=== PATIENT | female | born 1975 | race Caucasian/White ===

== ENCOUNTER 2023-11-19 16:23 | Outpatient (CLI) | payer OTHER, SELFPAY ==
[2023-11-19 22:29] LABS: Chlamydia DNA Amplified* NOT DETECTED (No Detected); GC DNA Amplified* NOT DETECTED (No Detected)
== END 2023-11-19 16:24 | disposition home or self-care (01) ==
PROVIDERS: PCP Family Medicine; Visit Provider Registered Nurse
DX: Z11.3 Encounter for screening for infections with a predominantly sexual mode of transmission (principal); L65.9 Nonscarring hair loss, unspecified
CPT/HCPCS: 84443; 87491; 87591

== ENCOUNTER 2023-12-10 08:36 | Outpatient (CLI) | payer OTHER, SELFPAY ==
--- NOTE | 2023-12-10 09:47 | W.ANESCHARGE ---
Anesthesia Charges Start Date/Time Anesthesia Start Date: 12/10/23 Anesthesia Start Time: 09:23 Stop Date/Time Anesthesia Stop Date: 12/10/23 Anesthesia Stop Time: 09:44
--- NOTE | 2023-12-10 10:00 | W.ANESCHARGE ---
Anesthesia Charges Start Date/Time Anesthesia Start Date: 12/10/23 Anesthesia Start Time: 09:23 Stop Date/Time Anesthesia Stop Date: 12/10/23 Anesthesia Stop Time: 09:44
== END 2023-12-10 08:37 | disposition home or self-care (01) ==
LOC: OP CLINIC 08:37
PROVIDERS: PCP Family Medicine; Visit Provider Internal Medicine
DX: Z12.11 Encounter for screening for malignant neoplasm of colon (principal)
CPT/HCPCS: 00811; 00812; 45378; J2704

== ENCOUNTER 2024-04-15 14:57 | Outpatient (CLI) | payer OTHER, SELFPAY ==
--- NOTE | 2024-04-15 15:00 | MM_ITS ---
Patient: RAFIA INGRAM Facility:?[facility] Patient ID:?[id number] Site Patient ID:?[id number] Site :?1975 Study:?XRay-Breast Bilateral 3D W/CAD-04/15/2024 3:39:02 PM Ordering Physician:Vazquez Bettencourt Final Report: BILATERAL SCREENING MAMMOGRAM WITH COMPUTER-AIDED DETECTION AND TOMOSYNTHESIS TECHNIQUE: CC and MLO views were obtained. These mammographic images have been obtained using full-field digital technique. These mammographic images were interpreted with the benefit of computer-aided detection. Breast Tomosynthesis was used in this interpretation. COMPARISON FILM: 04/12/23, 03/19/22, 02/28/21. FINDINGS: There are scattered areas of fibroglandular density. IMPRESSION: There is no radiographic evidence for malignancy. ASSESSMENT: BI-RADS Category 2: Benign RECOMMENDATION: Routine screening mammogram in 1 year. A lay language report of this examination will be provided to the patient. Иван Mariee M.D. Diagnostic Radiologist [email or web address] DSM/sp R& Transcribed: 1:57 p.m. SP/Dictated by: Иван Mariee MD @ 04/16/2024 9:55:00 AM Signed by:?Иван Mariee MD @04/16/2024 3:10:48 PM (Electronic Signature)
== END 2024-04-15 14:58 | disposition home or self-care (01) ==
PROVIDERS: PCP Family Medicine; Visit Provider Family Medicine
DX: Z12.31 Encounter for screening mammogram for malignant neoplasm of breast (principal)
CPT/HCPCS: 77063; 77067

== ENCOUNTER 2025-01-12 08:04 | Outpatient (CLI) | payer BC, SELFPAY ==
[2025-01-12 15:25] LABS: Bacterial Vaginosis* POSITIVE (Negative); Candida glab/krus NOT DETECTED (No Detected); Candida species NOT DETECTED (No Detected); Trichomonas vaginalis NOT DETECTED (No Detected)
== END 2025-01-12 08:05 | disposition home or self-care (01) ==
LOC: NFLDREF 08:17
PROVIDERS: PCP Family Medicine; Visit Provider Physician Assistant
DX: N89.8 Other specified noninflammatory disorders of vagina (principal)
CPT/HCPCS: 81513; 87481; 87661

== ENCOUNTER 2025-04-27 13:24 | Emergency (ER) | payer BC, SELFPAY ==
[2025-04-27] VITALS (36 sets, daily range): BP systolic 164–192; BP diastolic 97–124; PULSE 48–62; RESP 9–21; TEMP 36.4; O2SAT 90–100; BMI 36.1
--- OUTSIDE RECORDS SUMMARY | 2025-04-27 13:26 | XMS_ITS | Clinical Summary ---
Author Organization [facility] Address [address] [place] [id number] Care Team Providers Care Excel Vba Developer Name Role Phone Unavailable Primary Care Provider Unavailabl e Allergies No known active allergies Medications TRIAMCINOLONE ACETONIDE 0.1 % LOTION apply a thin film to the affected skin areas by topical route 2 times per day 0 Active FLUTICASONE 50 MCG/ACTUATION NASAL SPRAY, SUSP 2 sprays in each nostril daily 16 1 year 8 Active norgestimate-eth inyl estradiol (TRI-SPRINTEC) 0.18/0.215/0.25 mg-35 mcg (28) tablet Take 1 tablet by mouth once daily. 1 Package PRN 1 Active triamcinolone (ARISTOCORT; KENALOG) 0.1 % creamIndications :Contact dermatitis and other eczema, due to unspecified cause Apply topically to affected area(s) 2 times daily. 45 g 1 1 Active Active Problems Problem Noted Date Diagnosed Date Sensorineural hearing loss, bilateral 11/06/2007 Major depressive disorder, recurrent episode, un specified 08/01/2007 Immunizations Immunization Administration Dates Next Due Td (Age >=7 Years) 05/25/2002 Tuberculin (PPD) 04/10/2010,04/13/2009, 8 Varicella Vaccine 02/20/2007 Family History Medical History Relation Name Comments Alcohol/Drug Father recovering alco holic Alcohol/Drug Paternal Grandfather recover ing alcoholic Diabetes Paternal Grandfather type II Hypertension Paternal Grandfather Cancer Paternal Grandmother lung Relation Name Status Comments Father Paternal Grandfather Paternal Grandmother Social History Tobacco Use Types Packs/Day Years Used Date Smoking Tobacco: Never Smokeless Tobacco: Never Alcohol Use Standard Drinks/Week Comments Yes 0 (1 standard drink = 0.6 oz pur e alcohol) occasional Comments Unknown Sex and Gender Information Value Date Recorded Sex Assigned at Not on file Legal Sex Female 5:41 AM 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 MACHINE OPERATOR Gender Identity Not on file Sexual Orientation Not on file Obstetrics History Last Filed Vital Signs Vital Sign Reading Time Taken Comments Blood Pressure 133/87 02/05/2011 3:38 PM SIDE SEAM MACHINE OPERATOR Pulse 74 02/05/2011 3:38 PM SIDE SEAM MACHINE OPERATOR Temperature 37.1 C (98.8 F) 02/05/2011 3:38 PM SIDE SEAM MACHINE OPERATOR Respiratory Rate - - Oxygen Saturation - - Inhaled Oxygen Concentration - - Weight 83 kg (183 lb) 02/05/2011 3:38 PM SIDE SEAM MACHINE OPERATOR Height - - Body Mass Index - - Plan of Treatment Health Maintenance Due Date Last Done Comments Tdap 1988 Depression screening for age 12+ 1989 HIV for age 15-65 1992 BMI (ht and wt on same day) for age 18+ 1995 Hepatitis C screening for age 18-79 1995 Hepatitis B series for 19+ (1 of 3 - 19+ 3-dose series) 1996 Tetanus booster 05/25/2012 05/25/2002 Colonoscopy through age 75 2022 Lipids for age 45-75 2022 11/05/2006 Mammogram for age 45-75 2022 COVID-19 vaccine series ( - 2023- season) 2024 Influenza Vaccine (Season Ended) 2025 Pap test for age 21-65 11/19/2026 , 11/19/2023, 02/17/2021, Additional history exists Pneumococcal series for age 6-49 Aged Out No longer eligible based on patient's age to complete this topic Procedures Procedure Name Priority Date/Time Associated Diagnosis Comments HPV HIGH RISK Routine 11/19/2023 12:00 PM SIDE SEAM MACHINE OPERATOR LIPID PANEL Timed 11/05/2006 11:16 AM SIDE SEAM MACHINE OPERATOR from Last 3 Months or Most Recently Relevant to Health Maintenance Results * HPV HIGH RISK (11/19/2023 12:00 PM SIDE SEAM MACHINE OPERATOR) TYPE 16 Negative Negative 11/26/2023 2:10 PM SIDE SEAM MACHINE OPERATOR [facility] TYPE 18 Negative Negative 11/26/2023 2:10 PM SIDE SEAM MACHINE OPERATOR [facility] OTHER HIGH RISK TYPES Negative Negative 11/26/2023 2:10 PM SIDE SEAM MACHINE OPERATOR [facility] Other (Cervical) 11/19/2023 12:00 PM SIDE SEAM MACHINE OPERATOR 11/21/2023 4:50 PM SIDE SEAM MACHINE OPERATOR Narrative [facility] - 11/26/2023 2:10 PM SIDE SEAM MACHINE OPERATOR HPV types 16, 18, 31, 33, 35, 39, 45, 51, 52, 56, 58, 59, 66 and 68 DNA were undetectable or below the pre-set threshold. Methodology: Nanette Juan 4800 HPV Test Linette Silva NP MICROBIOLOGY Final Res ult [facility] [address] [address], * LIPID PANEL (11/05/2006 11:16 AM SIDE SEAM MACHINE OPERATOR) CHOLESTEROL,TOTAL 124 110 - 199 mg/dL [facility] TRIGLYCERIDES 113 <150 mg/dL [facility] HDL CHOLESTEROL 58 >40 mg/dL [facility] CHOL/HDL RATIO 2.14 <4.51 [facility] LDL CHOLESTEROL 43 <131 mg/dL [facility] PATIENT STATUS Fasting [facility] 11/05/2006 11:1 6 AM SIDE SEAM MACHINE OPERATOR 11/05/2006 11:16 AM SIDE SEAM MACHINE OPERATOR Teofilo LEPE CHEMISTRY Final Result [facility] [address] [place] [address] from Last 3 Months or Most Recently Relevant to Health Maintenance Insurance [employer] ALEJANDRAELIZABETH AGUILERA [id number]
--- NOTE | 2025-04-27 13:50 | CRLHL7_ITS ---
For Patients: As a result of the Century Cures Act, medical imaging exams and procedure reports are released immediately into your electronic medical record. You may view this report before your referring provider. If you have questions, please contact your health care provider. INDICATION: Chest pain and palpitations COMPARISON: None TECHNIQUE: PA and lateral views of the chest were acquired FINDINGS: TUBES AND LINES: None. HEART AND MEDIASTINUM: Significantly enlarged heart. Tortuous aorta.. LUNGS AND PLEURAL SPACES: The lungs appear normal.The pleural spaces are unremarkable. OSSEOUS STRUCTURES: Age-appropriate appearance. No acute focal finding. IMPRESSION: Significantly enlarged heart. Tortuous thoracic aorta. Lungs and pleural spaces appear normal. Dictated by Alfred Mishra MD @ 04/27/2025 2:12:43 PM (Electronically Signed)
--- NOTE | 2025-04-27 14:01 | ED.GENADULT ---
HPI - General Adult General Date Seen: 04/27/25 Chief complaint: Heartburn/Gastritis Stated complaint: High bp, heartburn Time Seen by Provider: 04/27/25 13:38 Source: patient Mode of arrival: ambulatory Limitations: no limitations History of Present Illness HPI narrative: Patient is a 50-year-old female presenting for chest pain and hypertension. States she initially was having some heartburn sensation in her mid in left upper chest. She was also having some associated nausea. Due to this she decided to check her blood pressure and noticed it was elevated the in the 180 systolic. She states that is very high for her and she has never seen it above 140 before. Of note she has not been taking her hypertension medication now for several months. She states she ran out in for got a follow-up with her doctor to get another prescription. Does state she has some associated tenderness to her left arm but noticed the symptoms started last night and does states she did a lot of climbing up and down ladders and gutter work yesterday. States that was an abnormally large amount of physical exertion that she typically does not do. States she has had heartburn before but this seems different. No associated fevers, chills, shortness of breath, abdominal pain, diarrhea, lightheadedness, dizziness, weakness, numbness. Denies hemoptysis, history of blood clots, lower extremity edema recent surgeries, cancer history. Is not on any hormone therapy. She states symptoms seem to be improving now. Related Data Previous Rx's ?Medication ?Instructions ?Recorded metronidazole 500 mg tablet 500 mg PO BID #14 tabs 01/12/25 chlorthalidone 25 mg tablet 12.5 mg (1/2 x 25 mg) PO DAILY #30 04/27/25 tabs Allergies Allergy/AdvReac Type Severity Reaction Status Date / Time No Known Drug Allergies Allergy Verified 04/27/25 13:31 Review of Systems Status of ROS: Reports: 10 or more systems reviewed and unremarkable except as noted in History and below [facility] Medical History History of depression ?Z86.59 - Personal history of other mental and behavioral disorders (ICD-10) History of vaginal delivery (05/19/13) Irregular menstrual cycle ?N92.6 - Irregular menstruation, unspecified (ICD-10) History of gestational diabetes mellitus (GDM) ?Z86.32 - Personal history of gestational diabetes (ICD-10) Surgical History History of endometrial ablation ?Z98.890 - Other specified postprocedural states (ICD-10) History of right salpingo-oophorectomy (11/21/17) ?Z90.79 - Acquired absence of other genital organ(s) (ICD-10) ?Z90.721 - Acquired absence of ovaries, unilateral (ICD-10) History of laparoscopic cholecystectomy (11/21/17) ?Z90.49 - Acquired absence of other specified parts of digestive tract (ICD-10) History of colonoscopy ?Z98.890 - Other specified postprocedural states (ICD-10) Family History Grandfather Diabetes Heart disease High blood pressure Aunt Thyroid disease Father Heart disease Maternal Grandmother Breast cancer Lung cancer Paternal Grandmother Lung cancer Social History What is your current living situation?: I presently have a place to live Problems where you live: no known problems In the past 12 months, utilities in danger of being shut off: no In past 12 months, lack of transportation kept you from medical appts, meetings, work, or getting things needed for daily living: no How hard is it for you to pay for the very basics like food, housing, medical care, and heating: not very hard In the past 12 mos, have been you worried that your food would run out before you had money to buy more?: never true In the past 12 mos, the food you bought just didn't last and you didn't have money to buy more?: never true How often does anyone, including family, friends and others, physically hurt you: never How often does anyone, including family, friends and others, insult or talk down to you: never How often does anyone, including family, friends and others, threaten you with harm: never How often does anyone, including family, friends and others, scream or curse at you: never Exam Narrative: Exam Narrative: Const: Well-nourished, Well-developed, in mild distress Eyes: PERRL, no conjunctival injection, and symmetrical lids HENT: Atraumatic external nose and ears. Moist mucous membranes. Neck: Symmetric, trachea midline, No thyromegaly. CVS: RRR, No murmurs or gallops. Peripheral pulses 2+ and equal in all extremities RESP: Unlabored respiratory effort. Clear to auscultation bilaterally. GI: Nontender/Nondistended, No rebound or guarding. MSK:Extremities w/o deformity, Normal Active ROM Skin: Warm, Dry. No rashes or lesions. Neuro: Normal Muscle tone, No focal neurological deficits. Psych: Awake, Alert, & Oriented x3. Appropriate mood and affect. Const: Vital Signs, click to edit/add: Vital Signs - 24 hr 04/27/25 13:33 04/27/25 13:45 04/27/25 14:00 Temperature 97.6 F Pulse Rate 56 L 59 L Pulse Rate [Pulse Oximeter] 62 Respiratory Rate 20 16 Blood Pressure Blood Pressure [Ri ght Upper Arm] 186/124 H Pulse Oximetry 98 98 97 [facility] 04/27/25 14:02 04/27/25 14:15 04/27/25 14:17 Temperature Pulse Rate 57 L 58 L 56 L Pulse Rate [Pulse Oximeter] Respiratory Rate 21 17 Blood Pressure 192/110 H 164/117 H Blood Pressure [Ri ght Upper Arm] Pulse Oximetry 97 96 96 Oxygen Delivery Me thod 04/27/25 14:18 04/27/25 14:30 04/27/25 14:31 Temperature Pulse Rate 57 L 56 L 54 L Pulse Rate [Pulse Oximeter] Respiratory Rate 17 11 L 9 L Blood Pressure 174/106 H Blood Pressure [Ri ght Upper Arm] Pulse Oximetry 97 99 100 Oxygen Delivery Me thod 04/27/25 14:45 04/27/25 14:47 04/27/25 15:00 Temperature Pulse Rate 50 L 53 L 58 L Pulse Rate [Pulse Oximeter] Respiratory Rate 16 17 18 Blood Pressure 183/107 H Blood Pressure [Ri ght Upper Arm] Pulse Oximetry 98 100 100 Oxygen Delivery Me thod 04/27/25 15:02 04/27/25 15:10 04/27/25 15:15 Temperature Pulse Rate 52 L 58 L 54 L Pulse Rate [Pulse Oximeter] Respiratory Rate 16 Blood Pressure 188/105 H Blood Pressure [Ri ght Upper Arm] Pulse Oximetry 100 90 100 Oxygen Delivery Me thod 04/27/25 15:16 04/27/25 15:30 04/27/25 15:31 Temperature Pulse Rate 48 L 52 L 52 L Pulse Rate [Pulse Oximeter] Respiratory Rate Blood Pressure 181/105 H 182/108 H Blood Pressure [Ri ght Upper Arm] Pulse Oximetry 100 99 100 Oxygen Delivery Me thod 04/27/25 15:45 04/27/25 15:47 04/27/25 15:48 Temperature Pulse Rate 49 L 49 L 55 L Pulse Rate [Pulse Oximeter] Respiratory Rate 15 20 Blood Pressure 175/104 H Blood Pressure [Ri ght Upper Arm] Pulse Oximetry 99 99 98 Oxygen Delivery Me thod 04/27/25 16:00 04/27/25 16:02 04/27/25 16:15 Temperature Pulse Rate 53 L 52 L 54 L Pulse Rate [Pulse Oximeter] Respiratory Rate 16 Blood Pressure 165/97 H Blood Pressure [Ri ght Upper Arm] Pulse Oximetry 100 100 98 Oxygen Delivery Me thod 04/27/25 16:17 04/27/25 16:30 04/27/25 16:31 Temperature Pulse Rate 52 L 56 L 53 L Pulse Rate [Pulse Oximeter] Respiratory Rate 16 13 13 Blood Pressure 171/107 H 174/107 H Blood Pressure [Ri ght Upper Arm] Pulse Oximetry 98 100 100 Oxygen Delivery Me thod 04/27/25 16:32 04/27/25 16:45 04/27/25 16:47 Temperature Pulse Rate 58 L 53 L 57 L Pulse Rate [Pulse Oximeter] Respiratory Rate 16 16 Blood Pressure 185/108 H Blood Pressure [Ri ght Upper Arm] Pulse Oximetry 98 100 98 Oxygen Delivery Me thod Course Vital Signs Vital signs: Initial Vital Signs Temperature 97.6 F 04/27/25 13:33 Temperature Source Temporal Artery Scan 04/27/25 13:33 Pulse Rate 62 04/27/25 13:33 Respiratory Rate 20 04/27/25 13:33 Blood Pressure 186/124 H 04/27/25 13:33 Blood Pressure Mean 144 H 04/27/25 13:33 Pulse Oximetry 98 04/27/25 13:33 Oxygen Delivery Method Room Air 04/27/25 13:33 Vital Signs Temperature 97.6 F 04/27/25 13:33 Pulse Rate 62 04/27/25 13:33 Respiratory Rate 20 04/27/25 13:33 Blood Pressure 186/124 H 04/27/25 13:33 Pulse Oximetry 98 04/27/25 13:33 Oxygen Delivery Method Room Air 04/27/25 13:33 Temperature 97.6 F 04/27/25 13:33 Pulse Rate 57 L 04/27/25 16:47 Respiratory Rate 16 04/27/25 16:47 Blood Pressure 185/108 H 04/27/25 16:47 Pulse Oximetry 98 04/27/25 16:47 Oxygen Delivery Method Room Air 04/27/25 13:33 Medical Decision Making MDM Narrative Medical decision making narrative: Patient is a 50-year-old female presenting for chest pain. The differential diagnosis of chest pain is broad and includes common etiologies such as musculoskeletal strain, GERD, pneumonia, etc. More serious etiologies considered include PE, coronary artery disease, pneumothorax, aortic dissection, aortic aneurysm. She is PERC negative and PE can not be ruled out. But concern for aortic dissection and aortic aneurysm is very low. Will do chest x-ray to look for signs of pneumothorax or pneumonia. EKG and troponin to look for signs of coronary disease or other arrhythmias. Will also check a CBC, BMP, viral swabs, magnesium. Lab work returned with no acute concerning abnormalities. Dejan's mother negative. EKG and troponin within normal limits. Repeat troponin also within normal limits. She is asymptomatic in the emergency department at this time. I cannot say exactly what was causing symptoms but I do not see any acute concerning abnormalities I believe she is safe for discharge. Lab Data Labs: Lab Results 04/27/25 04/27/25 04/27/25 Range/Units 14:05 14:37 16:05 WBC 6.62 (4.50-11.00) K/uL RBC 4.31 (4.00-5.20) m/uL Hgb 13.0 (12.0-16.0) gm/dL Hct 39.4 (33.0-51.0) % MCV 91 (80-100) fL MCH 30 (26-34) pg MCHC 33 (32-36) gm/dL RDW Coeff of Shilo 11.9 (11.5-15.5) % Plt Count 319 (140-440) K/uL Neut % (Auto) 55.7 (42.0-72.0) % Lymph % (Auto) 31.0 (20-44) % [place] % (Auto) 8.2 (0.0-11.0) % Eos % (Auto) 4.4 (0.0-7.0) % Baso % (Auto) 0.5 (0.0-3.0) % Neut # (Auto) 3.70 (1.7-7.0) K/uL Lymph # (Auto) 2.05 (0.90-2.90) K/uL [place] # (Auto) 0.50 (0.00-0.90) K/UL Eos # (Auto) 0.29 (0.00-0.50) K/uL Baso # (Auto) 0.03 (0.00-0.30) K/uL Abs Immat Gran (auto) 0.01 (0.00-0.30) K/uL Imm/Tot Granulo (auto) 0.2 % Sodium 142 (135-149) mmol/L Potassium 3.6 (3.6-5.1) mmol/L Chloride 104 (96-114) mmol/L Carbon Dioxide 30 (20-32) mmol/L Anion Gap 8 (7-15) mEq/L BUN 8 (5-24) mg/dL Creatinine 0.6 (0.5-1.5) mg/dL Estimated Creat Clear 94.85 Estimated GFR 111 ml/min Glucose 88 (60-115) mg/dL Calcium 9.9 (8.4-10.6) mg/dL Magnesium 2.1 (1.5-2.6) mg/dL Troponin I < 0.01 (0.01-0.04) ng/mL NT-Pro-B Natriuret Pep 97 (See Note) pg/mL SARS-CoV-2 (PCR) Negative SARS-CoV-2 (Negative) Influenza Type A (PCR) Negative PCR FLU A (Negative) Influenza Type B (PCR) Negative PCR FLU B (Negative) RSV (PCR) Negative PCR RSV (Negative) Lab Acknowledgement Test Added POC Troponin I 0.00 L (0.01-0.04) ng/ml Imaging Data Chest x-ray: Attestation: I have reviewed the pertinent imaging results. Radiologist's impression: Significantly enlarged heart. Tortuous thoracic aorta. Lungs and pleural spaces appear normal. Dictated by Alfred Mishra MD @ 04/27/2025 2:12:43 PM ECG Data Attestation: I personally reviewed and interpreted this ECG as follows: Prior ECG tracings: not available for review Interpretation: Sinus bradycardia with a rate of 51 beats per minute, left axis deviation, no obvious ST or T-wave abnormalities. There is some T-wave flattening. No previous EKGs to compare to. Discharge Plan Discharge Clinical Impression: Atypical chest pain Patient Disposition: Home, Self-Care Condition: Stable Instructions: Noncardiac Chest Pain (ED) Additional Instructions: I recommend close follow-up with the primary care provider. Return to emergency department for new or worsening symptoms. I will give you a prescription for the chlorothiazide own. Recommend following up with the primary care provider for this also. Prescriptions: New chlorthalidone 25 mg tablet 12.5 mg PO DAILY Qty: 30 0RF Discontinued chlorthalidone 25 mg tablet 12.5 mg PO QDAY PRN No Action metronidazole 500 mg tablet 500 mg PO BID Qty: 14 0RF Follow Up/Referrals: Vazquez Bacon MD [Primary Care Provider, Family Practice] Stand Alone Forms: [employer] Info Instructions
[2025-04-27 14:23] LABS: Basophils Absolute Auto 0.03 K/uL (0.00-0.30); Basophils Percent Auto 0.5 % (0.0-3.0); Eosinophils Absolute Auto 0.29 K/uL (0.00-0.50); Eosinophils Percent Auto 4.4 % (0.0-7.0); Hematocrit 39.4 % (33.0-51.0); Immature Granulocytes Abs Auto 0.01 K/uL (0.00-0.30); Immature Granulocytes Pct Auto 0.2 %; Lymphocytes Absolute Auto 2.05 K/uL (0.90-2.90); Mean Corpuscular HGB Conc 33 gm/dL (32-36); Mean Corpuscular Hemoglobin 30 pg (26-34); Mean Corpuscular Volume 91 fL (80-100); Monocytes Percent Auto 8.2 % (0.0-11.0); Neutrophils Percent Auto 55.7 % (42.0-72.0); Platelet Count* 319 K/uL (140-440); RDW Coefficient of Variation % 11.9 % (11.5-15.5); Red Blood Count 4.31 m/uL (4.00-5.20); Slide Review Reflex No; White Blood Count* 6.62 K/uL (4.50-11.00)
[2025-04-27 14:43] LABS: Chloride* 104 mmol/L (96-114); Potassium* 3.6 mmol/L (3.6-5.1); Sodium* 142 mmol/L (135-149)
[2025-04-27 14:46] LABS: Anion Gap 8 mEq/L (7-15); Blood Urea Nitrogen* 8 mg/dL (5-24); Calcium* 9.9 mg/dL (8.4-10.6); Carbon Dioxide* 30 mmol/L (20-32); Creatinine* 0.6 mg/dL (0.5-1.5); Est. Creatinine Clearance* 94.85; Estimated Glomerular Filt Rate 111 ml/min; Glucose* 88 mg/dL (60-115); Magnesium* 2.1 mg/dL (1.5-2.6)
[2025-04-27 14:59] LABS: NT Pro B Type NatriureticPept* 97 pg/mL (See Note)
[2025-04-27 15:08] LABS: PCR FLU A Negative PCR FLU A (Negative); PCR FLU B Negative PCR FLU B (Negative); PCR RSV Negative PCR RSV (Negative); SARS PCR* Negative SARS-CoV-2 (Negative)
[2025-04-27 15:34] LABS: Troponin I* < 0.01 ng/mL (0.01-0.04)
== END 2025-04-27 17:33 | disposition home or self-care (01) ==
PROVIDERS: Emergency Provider Student in an Organized Health Care Education/Training Program; PCP Family Medicine
DX: R07.89 Other chest pain (principal)
CPT/HCPCS: 36415; 71046; 80048; 83735; 83880; 84484; 85025; 87631; 99284

== ENCOUNTER 2025-05-13 10:44 | Outpatient (CLI) | payer BC, SELFPAY | END 2025-05-13 10:45 | disposition home or self-care (01) | LOC: NFLDREF 10:45 | PROVIDERS: PCP Family Medicine; Visit Provider Family Medicine | DX: I10 Essential (primary) hypertension (principal) | CPT/HCPCS: 80048 ==

== ENCOUNTER 2025-06-10 07:54 | Outpatient (CLI) | payer BC, SELFPAY | END 2025-06-10 07:55 | disposition home or self-care (01) | LOC: NFLDREF 06-13 20:35 | PROVIDERS: PCP Family Medicine; Referring Provider Family Medicine; Visit Provider Family Medicine | DX: E87.6 Hypokalemia (principal) | CPT/HCPCS: 80048 ==

== ENCOUNTER 2025-06-22 17:07 | Outpatient (CLI) | payer BC, SELFPAY ==
--- NOTE | 2025-06-22 17:20 | CRLHL7_ITS ---
For Patients: As a result of the Century Cures Act, medical imaging exams and procedure reports are released immediately into your electronic medical record. You may view this report before your referring provider. If you have questions, please contact your health care provider. INDICATION: BILATERAL SCREENING MAMMOGRAM ASYMPTOMATIC 50 Y/O FEMALE COMPARISON: 04/15/2024, 04/12/2023, 03/19/2022 TECHNIQUE: Digital mammogram in CC and MLO projections including computer-aided detection (CAD) and tomosynthesis. BREAST COMPOSITION: There are scattered areas of fibroglandular density. FINDINGS: No suspicious findings. ASSESSMENT: BI-RADS 1 Negative RECOMMENDATION: Annual screening mammogram. A lay language report of this examination will be provided to the patient. Dictated by: Lara Gray MD @ 06/24/2025 11:36:50 (Electronically Signed)
== END 2025-06-22 17:08 | disposition home or self-care (01) ==
LOC: MAMMO 17:07
PROVIDERS: PCP Family Medicine; Visit Provider Family Medicine
DX: Z12.31 Encounter for screening mammogram for malignant neoplasm of breast (principal)
CPT/HCPCS: 77063; 77067